=== PATIENT | female | born 1955 | race Two or more races ===

== ENCOUNTER 2019-02-24 08:06 | Inpatient (IN) | payer OTHER ==
[~2019-02-24] VITALS: Ht 167.6 cm; Wt 93.4 kg
[2019-02-24] VITALS (62 sets, daily range): BP systolic 50–167; BP diastolic 19–112
[2019-02-24] MEDS ORDERED: NALOXONE HCL 1 MG/ML 2ML VIAL ONE (08:12)
[2019-02-24] MEDS ORDERED: ETOMIDATE 2MG/ML 10ML VIAL IV ONE (08:30)
[2019-02-24] MEDS ORDERED: SUCCINYLCHOLINE CHLORIDE 200MG/10ML IV ONE (08:30)
[2019-02-24] MEDS ORDERED: NALOXONE HCL 1 MG/ML 2ML VIAL IV ONE (08:30)
[2019-02-24] MEDS ORDERED: PROPOFOL 10MG/ML 100ML 100 ML IV ONE (08:30)
[2019-02-24 08:42] LABS: PROTHROMBIN TIME 10.6 sec (9.6-11.0)
[2019-02-24 08:48] LABS: BASOPHILS % 0.1 % (0.0-2.0); HEMATOCRIT. 33.8 % (36.0-48.0); HEMOGLOBIN. 11.1 g/dL (12.0-16.0); LYMPHOCYTES % 7.3 % (20.0-50.0); MEAN CORPUSCULAR VOLUME 94.3 fL (81.0-99.0); MEAN PLATELET VOLUME 11.2 fl (7.4-10.4); MONOCYTES % 11.4 % (2.0-8.0); NEUTROPHILS % 81.2 % (40.0-76.0); PLATELET 116 x1000/uL (130-400); RED BLOOD CELL COUNT 3.58 mill/uL (4.2-5.4); RED CELL DISTRIBUTION WIDTH 14.8 % (11.6-14.6)
[2019-02-24 09:03] LABS: CHLORIDE 103 mEq/L (98-107)
[2019-02-24 09:28] LABS: BG BASE EXCESS -17.1 mmol/L (-2.0-2.0); BG CARBOXYHEMOGLOBIN 0.3 % (0.5-1.5); BG DEOXYHEMOGLOBIN 0.8 % (0.0-5.0); BG HCO3 ACT 11.9 mmol/L (22.0-26.0); BG METHEMOGLOBIN 0.2 % (0.0-1.5); BG OXYGEN SATURATION 99.2 % (92.0-98.5); BG OXYHEMOGLOBIN 98.7 % (94.0-97.0); BG PCO2 39.8 mmHg (35.0-45.0); BG PH 7.092 (7.350-7.450); BG PO2 269.7 mmHg (75.0-100.0); BG SAMPLE SITE RIGHT BRACHIAL; BG TIDAL VOLUME(mL) 500 mL; BG VENT MODE VENT - A/C; BG VENT RATE 16 set
[2019-02-24] MEDS ORDERED: FUROSEMIDE 100MG/10ML VIAL IV ONE (09:30)
[2019-02-24] MEDS ORDERED: INSULIN REGULAR (HUMULIN R) 300UNITS/3ML IV ONE (09:30)
[2019-02-24] MEDS ORDERED: SODIUM BICARBONATE 8.4% 1 MEQ/ML 50ML SYR IV ONE (09:30)
[2019-02-24] MEDS ORDERED: DEXTROSE 50% WATER 50ML SYRINGE IV ONE (09:30)
[2019-02-24] MEDS ORDERED: SODIUM CHLORIDE 0.9% 1,000 ML IV ONE (10:30)
[2019-02-24] MEDS ORDERED: LIDOCAINE HCL 1% 20ML VIAL (Pyxis) INJ ONE (10:30)
[2019-02-24] MEDS ORDERED: NOREPINEPHRINE 4MG/250ML PMX 250 ML IV ONE (11:05)
[2019-02-24] MEDS ORDERED: NOREPINEPHRINE 4 MG in DEXT 5% WATER 246 ML IV ONE (11:15)
[2019-02-24 12:52] LABS: HEPATITIS B SURFACE ANTIGEN NEGATIVE
[2019-02-24 13:21] LABS: HEPATITIS A AB IGM NEGATIVE (NEGATIVE)
[2019-02-24 13:51] LABS: CLARITY URINE TURBID (CLEAR); COLOR URINE YELLOW (YELLOW); KETONES URINE NEGATIVE (NEGATIVE); LEUKOCYTE ESTERASE URINE NEGATIVE (NEGATIVE); NITRITE URINE NEGATIVE (NEGATIVE); OCCULT BLOOD URINE 1+ (NEGATIVE); PROTEIN URINE 1+ (NEGATIVE); SPECIFIC GRAVITY URINE 1.012 (1.005-1.030); UROBILINOGEN URINE 0.2 E.U./dL (0.2-1.0)
[2019-02-24] MEDS ORDERED: PHENYLEPHRINE 10 MG in DEXT 5% WATER 249 ML IV PRN (15:00)
[2019-02-24] MEDS ORDERED: PIPERACILLIN/TAZ 3.375G PREMIX 50 ML IV SCH (15:00)
[2019-02-24] MEDS ORDERED: ONDANSETRON HCL 4MG/2ML INJ IV PRN (15:00)
[2019-02-24] MEDS ORDERED: LORAZEPAM 0.5MG TABLET PO PRN (15:00)
[2019-02-24] MEDS: DEXT 5%/0.45% NACL 1000ML 1,000 ML IV SCH (15:24)
[2019-02-24] MEDS: NOREPINEPHRINE 4 MG in DEXT 5% WATER 246 ML IV PRN ×2 (15:41→22:19)
[2019-02-24] MEDS: PROPOFOL 10MG/ML 100ML 100 ML IV PRN ×2 (15:46→21:36)
[2019-02-24] MEDS ORDERED: VANCOMYCIN 1500MG in DEXTROSE 5% WATER 250ML IV SCH (18:00)
[2019-02-24] MEDS: FAMOTIDINE 20MG/2ML VIAL IV SCH (18:17)
[2019-02-24] MEDS: PIPERACILLIN/TAZ 2.25G PREMIX 50 ML IV SCH (18:17)
[2019-02-24] MEDS: ENOXAPARIN 40MG/0.4ML SYR SUBCUT SCH (18:18)
[2019-02-24] MEDS: CHLORHEXIDINE GLUCONATE 0.12% ORAL MOUTHWASH SSP SCH (18:20)
[2019-02-24] MEDS ORDERED: DEXTROSE 50% WATER 50ML SYRINGE IV PRN ×2 (23:15)
[2019-02-24] MEDS ORDERED: NOREPINEPHRINE 32 MG in DEXT 5% WATER 468 ML IV PRN ×2 (23:25→23:30)
[2019-02-24] MEDS ORDERED: PHENYLEPHRINE 80 MG in DEXT 5% WATER 492 ML IV PRN ×2 (23:26→23:45)
[2019-02-24] MEDS ORDERED: NOREPINEPHRINE 32 MG in DEXT 5% WATER 500 ML IV PRN (23:30)
[2019-02-24] MEDS: BLOOD SUGAR DIAGNOSTIC STRIP TEST SCH (23:50)
[2019-02-25] VITALS (99 sets, daily range): BP systolic 67–164; BP diastolic 20–112
[2019-02-25] MEDS ORDERED: BLOOD SUGAR DIAGNOSTIC STRIP TEST SCH
[2019-02-25] MEDS: PROPOFOL 10MG/ML 100ML 100 ML IV PRN ×5 (02:24→19:47)
[2019-02-25] MEDS: PIPERACILLIN/TAZ 2.25G PREMIX 50 ML IV SCH ×2 (04:00→16:35)
[2019-02-25] MEDS: MORPHINE SULFATE 2 MG/ML CPJ (NOT FOR IM USE) IV PRN ×3 (04:01→20:35)
[2019-02-25 04:32] LABS: HEMATOCRIT. 32.6 % (36.0-48.0); HEMOGLOBIN. 11.3 g/dL (12.0-16.0); MEAN CORPUSCULAR HEMOGLOBIN 30.9 pg (28.0-32.0); MEAN CORPUSCULAR VOLUME 88.8 fL (81.0-99.0); MEAN PLATELET VOLUME 9.9 fl (7.4-10.4); PLATELET 124 x1000/uL (130-400); RED BLOOD CELL COUNT 3.67 mill/uL (4.2-5.4); RED CELL DISTRIBUTION WIDTH 14.1 % (11.6-14.6)
[2019-02-25] MEDS: INSULIN LISPRO 100 UNITS/ML SUBCUT SCH ×4 (06:00→17:47)
[2019-02-25] MEDS: BLOOD SUGAR DIAGNOSTIC STRIP TEST SCH ×3 (06:23→17:46)
[2019-02-25 07:11] LABS: ATYPICAL LYMPHOCYTES 1; PLATELET ESTIMATE SLIGHTLY DECREASED
[2019-02-25] MEDS: DEXT 5%/0.45% NACL 1000ML 1,000 ML IV SCH (08:34)
[2019-02-25] MEDS: FAMOTIDINE 20MG/2ML VIAL IV SCH (08:34)
[2019-02-25] MEDS: CHLORHEXIDINE GLUCONATE 0.12% ORAL MOUTHWASH SSP SCH ×3 (08:35→16:37)
[2019-02-25 09:26] LABS: BG BASE EXCESS 0.3 mmol/L (-2.0-2.0); BG CARBOXYHEMOGLOBIN 0.8 % (0.5-1.5); BG FRACTION INSPIRED OXYGEN 40; BG HCO3 ACT 23.8 mmol/L (22.0-26.0); BG METHEMOGLOBIN 0.1 % (0.0-1.5); BG OXYHEMOGLOBIN 97.1 % (94.0-97.0); BG PCO2 34.9 mmHg (35.0-45.0); BG PH 7.452 (7.350-7.450); BG PO2 107.4 mmHg (75.0-100.0); BG SAMPLE SITE RIGHT RADIAL; BG TIDAL VOLUME(mL) 550 mL; BG TOTAL HEMOGLOBIN 12.1 g/dL (12.0-18.0); BG VENT MODE VENT - A/C; BG VENT RATE 20 set
[2019-02-25] MEDS ORDERED: KCL 20MEQ/100ML PREMIX 100 ML IV ONE (12:00)
[2019-02-25] MEDS: ENOXAPARIN 40MG/0.4ML SYR SUBCUT SCH (16:36)
[2019-02-25] MEDS: IPRATROPIUM/ALBUTEROL 0.5-3(2.5)MG/3ML NEB INH PRN (19:55)
[2019-02-26] VITALS (55 sets, daily range): BP systolic 90–138; BP diastolic 41–91
[2019-02-26] MEDS: BLOOD SUGAR DIAGNOSTIC STRIP TEST SCH ×5 (00:23→23:55)
[2019-02-26] MEDS: PIPERACILLIN/TAZ 2.25G PREMIX 50 ML IV SCH ×3 (00:31→17:24)
[2019-02-26] MEDS: PROPOFOL 10MG/ML 100ML 100 ML IV PRN ×2 (00:32→04:46)
[2019-02-26] MEDS: DEXT 5%/0.45% NACL 1000ML 1,000 ML IV SCH ×2 (00:33→17:25)
[2019-02-26] MEDS: MORPHINE SULFATE 2 MG/ML CPJ (NOT FOR IM USE) IV PRN ×2 (03:58→14:12)
[2019-02-26 04:54] LABS: BASOPHILS % 0.3 % (0.0-2.0); EOSINOPHILS % 0.7 % (0.0-5.0); HEMATOCRIT. 32.8 % (36.0-48.0); HEMOGLOBIN. 11.2 g/dL (12.0-16.0); MEAN CORPUSCULAR HEMOGLOBIN 30.6 pg (28.0-32.0); MEAN CORPUSCULAR VOLUME 89.6 fL (81.0-99.0); MEAN PLATELET VOLUME 9.6 fl (7.4-10.4); MONOCYTES % 12.1 % (2.0-8.0); NEUTROPHILS % 61.9 % (40.0-76.0); PLATELET 144 x1000/uL (130-400); RED BLOOD CELL COUNT 3.66 mill/uL (4.2-5.4); RED CELL DISTRIBUTION WIDTH 14.4 % (11.6-14.6)
[2019-02-26] MEDS: INSULIN LISPRO 100 UNITS/ML SUBCUT SCH ×5 (06:00→23:55)
[2019-02-26] MEDS: IPRATROPIUM/ALBUTEROL 0.5-3(2.5)MG/3ML NEB INH PRN ×2 (08:56→12:29)
[2019-02-26] MEDS: FAMOTIDINE 20MG/2ML VIAL IV SCH (09:09)
[2019-02-26] MEDS: ACETAMINOPHEN 650MG/20.3ML UDC PO PRN (09:10)
[2019-02-26] MEDS: CHLORHEXIDINE GLUCONATE 0.12% ORAL MOUTHWASH SSP SCH ×3 (09:10→17:25)
[2019-02-26] MEDS ORDERED: POTASSIUM CHLORIDE 20MEQ/PACKET NG NR (10:00)
[2019-02-26] MEDS ORDERED: VANCOMYCIN 1500MG in DEXTROSE 5% WATER 250ML IV NR (10:00)
[2019-02-26 11:07] LABS: BG BASE EXCESS 2.4 mmol/L (-2.0-2.0); BG CARBOXYHEMOGLOBIN 0.5 % (0.5-1.5); BG FRACTION INSPIRED OXYGEN 40; BG METHEMOGLOBIN 0.1 % (0.0-1.5); BG OXYHEMOGLOBIN 93.4 % (94.0-97.0); BG PCO2 47.6 mmHg (35.0-45.0); BG PH 7.387 (7.350-7.450); BG PO2 71.1 mmHg (75.0-100.0); BG PRESSURE SUPPORT 10; BG SAMPLE SITE RIGHT RADIAL; BG TOTAL HEMOGLOBIN 11.7 g/dL (12.0-18.0); BG VENT MODE VENT - CPAP
[2019-02-26] MEDS: ENOXAPARIN 40MG/0.4ML SYR SUBCUT SCH (17:24)
[2019-02-27] VITALS (29 sets, daily range): BP systolic 114–161; BP diastolic 71–105
[2019-02-27] MEDS: PIPERACILLIN/TAZ 2.25G PREMIX 50 ML IV SCH ×3 (00:01→16:25)
[2019-02-27] MEDS: MORPHINE SULFATE 2 MG/ML CPJ (NOT FOR IM USE) IV PRN (00:02)
[2019-02-27] MEDS: DEXT 5%/0.45% NACL 1000ML 1,000 ML IV SCH (01:53)
[2019-02-27] MEDS: INSULIN LISPRO 100 UNITS/ML SUBCUT SCH ×3 (06:00→18:00)
[2019-02-27 06:07] LABS: BASOPHILS % 0.3 % (0.0-2.0); EOSINOPHILS % 1.9 % (0.0-5.0); HEMATOCRIT. 31.8 % (36.0-48.0); HEMOGLOBIN. 10.9 g/dL (12.0-16.0); LYMPHOCYTES % 27.1 % (20.0-50.0); MEAN CORPUSCULAR HEMOGLOBIN 31.5 pg (28.0-32.0); MEAN CORPUSCULAR VOLUME 91.7 fL (81.0-99.0); MEAN PLATELET VOLUME 9.3 fl (7.4-10.4); MONOCYTES % 10.4 % (2.0-8.0); NEUTROPHILS % 60.3 % (40.0-76.0); PLATELET 162 x1000/uL (130-400); RED BLOOD CELL COUNT 3.47 mill/uL (4.2-5.4); RED CELL DISTRIBUTION WIDTH 14.3 % (11.6-14.6)
[2019-02-27] MEDS: BLOOD SUGAR DIAGNOSTIC STRIP TEST SCH ×3 (06:09→18:02)
[2019-02-27 06:13] LABS: PHOSPHORUS 4.2 mg/dL (2.5-4.9)
[2019-02-27] MEDS: FAMOTIDINE 20MG/2ML VIAL IV SCH (08:00)
[2019-02-27] MEDS: CHLORHEXIDINE GLUCONATE 0.12% ORAL MOUTHWASH SSP SCH ×3 (08:01→16:25)
[2019-02-27] MEDS ORDERED: VANCOMYCIN 1250MG in DEXTROSE 5% WATER 250ML IV NR (12:00)
[2019-02-27] MEDS: ENOXAPARIN 40MG/0.4ML SYR SUBCUT SCH (16:25)
[2019-02-27] MEDS: ACETAMINOPHEN 650MG/20.3ML UDC PO PRN (20:00)
[2019-02-28] VITALS (51 sets, daily range): BP systolic 97–165; BP diastolic 16–103
[2019-02-28] MEDS: BLOOD SUGAR DIAGNOSTIC STRIP TEST SCH ×5 (00:09→21:34)
[2019-02-28] MEDS: PIPERACILLIN/TAZ 2.25G PREMIX 50 ML IV SCH ×3 (00:13→15:52)
[2019-02-28 05:50] LABS: BASOPHILS % 0.4 % (0.0-2.0); EOSINOPHILS % 1.2 % (0.0-5.0); HEMATOCRIT. 36.2 % (36.0-48.0); HEMOGLOBIN. 11.9 g/dL (12.0-16.0); LYMPHOCYTES % 25.5 % (20.0-50.0); MEAN CORPUSCULAR VOLUME 94.2 fL (81.0-99.0); MONOCYTES % 9.5 % (2.0-8.0); NEUTROPHILS % 63.4 % (40.0-76.0); PLATELET 180 x1000/uL (130-400); RED BLOOD CELL COUNT 3.84 mill/uL (4.2-5.4); RED CELL DISTRIBUTION WIDTH 13.9 % (11.6-14.6)
[2019-02-28] MEDS: INSULIN LISPRO 100 UNITS/ML SUBCUT SCH ×5 (06:00→21:00)
[2019-02-28] MEDS: FAMOTIDINE 20MG/2ML VIAL IV SCH (09:24)
[2019-02-28] MEDS: CHLORHEXIDINE GLUCONATE 0.12% ORAL MOUTHWASH SSP SCH ×2 (09:24→17:14)
[2019-02-28] MEDS ORDERED: VANCOMYCIN 1500MG in DEXTROSE 5% WATER 250ML IV NR (10:00)
[2019-02-28] MEDS ORDERED: LIDOCAINE HCL 2% 5ML SYRINGE IV ONE (14:45)
[2019-02-28 15:25] LABS: BG BASE EXCESS 3.1 mmol/L (-2.0-2.0); BG CARBOXYHEMOGLOBIN 0.4 % (0.5-1.5); BG DEOXYHEMOGLOBIN 8.3 % (0.0-5.0); BG HCO3 ACT 27.5 mmol/L (22.0-26.0); BG OXYGEN SATURATION 91.7 % (92.0-98.5); BG OXYHEMOGLOBIN 91.3 % (94.0-97.0); BG PCO2 41.1 mmHg (35.0-45.0); BG PH 7.443 (7.350-7.450); BG PO2 61.1 mmHg (75.0-100.0); BG SAMPLE SITE RIGHT RADIAL; BG TOTAL HEMOGLOBIN 12.4 g/dL (12.0-18.0); BG VENT MODE ROOM AIR
[2019-02-28] MEDS: ENOXAPARIN 40MG/0.4ML SYR SUBCUT SCH (17:14)
[2019-03-01] VITALS (41 sets, daily range): BP systolic 105–164; BP diastolic 46–119
[2019-03-01] MEDS: PIPERACILLIN/TAZ 2.25G PREMIX 50 ML IV SCH ×4 (00:04→23:51)
[2019-03-01 05:59] LABS: HEMATOCRIT. 33.3 % (36.0-48.0); HEMOGLOBIN. 11.4 g/dL (12.0-16.0); MEAN CORPUSCULAR HEMOGLOBIN 31.3 pg (28.0-32.0); MEAN PLATELET VOLUME 8.8 fl (7.4-10.4); PLATELET 184 x1000/uL (130-400); RED BLOOD CELL COUNT 3.66 mill/uL (4.2-5.4); RED CELL DISTRIBUTION WIDTH 13.9 % (11.6-14.6)
[2019-03-01] MEDS: INSULIN LISPRO 100 UNITS/ML SUBCUT SCH ×4 (07:50→21:00)
[2019-03-01] MEDS ORDERED: POTASSIUM CHLORIDE 20MEQ/PACKET PO SCH (08:00)
[2019-03-01] MEDS: BLOOD SUGAR DIAGNOSTIC STRIP TEST SCH ×4 (08:01→21:11)
[2019-03-01] MEDS: FAMOTIDINE 20MG/2ML VIAL IV SCH (08:01)
[2019-03-01] MEDS ORDERED: VANCOMYCIN 1250MG in DEXTROSE 5% WATER 250ML IV SCH (11:00)
[2019-03-01] MEDS: CHLORHEXIDINE GLUCONATE 0.12% ORAL MOUTHWASH SSP SCH ×3 (11:16→16:40)
[2019-03-01 12:49] LABS: PLATELET ESTIMATE NORMAL
[2019-03-01] MEDS: ENOXAPARIN 40MG/0.4ML SYR SUBCUT SCH (16:40)
[2019-03-02] VITALS (27 sets, daily range): BP systolic 110–186; BP diastolic 52–96
[2019-03-02 06:11] LABS: HEMATOCRIT. 33.3 % (36.0-48.0); HEMOGLOBIN. 11.3 g/dL (12.0-16.0); MEAN CORPUSCULAR HEMOGLOBIN 31.2 pg (28.0-32.0); MEAN CORPUSCULAR VOLUME 91.5 fL (81.0-99.0); MEAN PLATELET VOLUME 8.9 fl (7.4-10.4); PLATELET 190 x1000/uL (130-400); RED BLOOD CELL COUNT 3.64 mill/uL (4.2-5.4); RED CELL DISTRIBUTION WIDTH 13.8 % (11.6-14.6)
[2019-03-02] MEDS: INSULIN LISPRO 100 UNITS/ML SUBCUT SCH ×4 (07:46→21:00)
[2019-03-02] MEDS: BLOOD SUGAR DIAGNOSTIC STRIP TEST SCH ×4 (07:46→20:47)
[2019-03-02] MEDS: FAMOTIDINE 20MG/2ML VIAL IV SCH (09:04)
[2019-03-02] MEDS: CHLORHEXIDINE GLUCONATE 0.12% ORAL MOUTHWASH SSP SCH ×3 (09:04→18:21)
[2019-03-02] MEDS: PIPERACILLIN/TAZ 2.25G PREMIX 50 ML IV SCH ×2 (09:04→16:16)
[2019-03-02 09:34] LABS: PLATELET ESTIMATE NORMAL
[2019-03-02] MEDS ORDERED: VANCOMYCIN 1500MG in DEXTROSE 5% WATER 250ML IV SCH ×4 (13:00)
[2019-03-02] MEDS: ACETAMINOPHEN 650MG/20.3ML UDC PO PRN (16:16)
[2019-03-02] MEDS: ENOXAPARIN 30MG/0.3ML SYR SUBCUT SCH (21:35)
[2019-03-03] VITALS (8 sets, daily range): BP systolic 129–169; BP diastolic 78–94
[2019-03-03] MEDS: PIPERACILLIN/TAZ 2.25G PREMIX 50 ML IV SCH ×2 (00:14→08:45)
[2019-03-03 06:17] LABS: HEMATOCRIT. 34.1 % (36.0-48.0); HEMOGLOBIN. 11.5 g/dL (12.0-16.0); MEAN CORPUSCULAR VOLUME 91.4 fL (81.0-99.0); MEAN PLATELET VOLUME 9.1 fl (7.4-10.4); PLATELET 193 x1000/uL (130-400); RED BLOOD CELL COUNT 3.73 mill/uL (4.2-5.4); RED CELL DISTRIBUTION WIDTH 13.5 % (11.6-14.6)
[2019-03-03] MEDS: BLOOD SUGAR DIAGNOSTIC STRIP TEST SCH ×2 (06:52→12:34)
[2019-03-03] MEDS: INSULIN LISPRO 100 UNITS/ML SUBCUT SCH ×2 (06:53→12:20)
[2019-03-03] MEDS: FAMOTIDINE 20MG/2ML VIAL IV SCH (08:45)
[2019-03-03] MEDS: ENOXAPARIN 30MG/0.3ML SYR SUBCUT SCH (08:45)
[2019-03-03] MEDS: CHLORHEXIDINE GLUCONATE 0.12% ORAL MOUTHWASH SSP SCH ×2 (08:53→12:34)
[2019-03-03 10:42] LABS: PLATELET ESTIMATE NORMAL
[2019-03-03] MEDS ORDERED: AMLODIPINE 5MG TABLET PO SCH (11:30)
[2019-03-03] MEDS ORDERED: VANCOMYCIN 1500MG in DEXTROSE 5% WATER 250ML IV SCH (14:00)
[2019-03-03] MEDS ORDERED: ASPI-1393 PO (14:28)
[2019-03-03] MEDS ORDERED: ATOR40TA70 PO (14:29)
== END 2019-03-03 17:12 | disposition home health service (06) | DRG 720 ==
LOC: ER 08:06 → CANRESERV 09:49 → CVICU 10:20 → EDBEDREQTM 10:24 → EDBEDREQ 10:24 → ENRESERV 10:29 → CVICU 12:10 → 6WST 03-03 01:30
PROVIDERS: ADMIT Internal Medicine; ATTEND Internal Medicine
PROC: 5A1945Z Respiratory Ventilation, 24-96 Consecutive Hours (ICD-10-PCS; principal; 2019-02-24)
PROC: 0BH17EZ Insertion of Endotracheal Airway into Trachea, Via Natural or Artificial Opening (ICD-10-PCS; 2019-02-24)
PROC: 02HV33Z Insertion of Infusion Device into Superior Vena Cava, Percutaneous Approach (ICD-10-PCS; 2019-02-24)
PROC: B548ZZA Ultrasonography of Superior Vena Cava, Guidance (ICD-10-PCS; 2019-02-24)
PROC: 5A1D70Z Performance of Urinary Filtration, Intermittent, Less than 6 Hours Per Day (ICD-10-PCS; 2019-02-24)
DX: A41.9 Sepsis, unspecified organism (principal); R57.9 Shock, unspecified; J96.91 Respiratory failure, unspecified with hypoxia; Z99.11 Dependence on respirator [ventilator] status; G93.40 Encephalopathy, unspecified; J18.9 Pneumonia, unspecified organism; G93.49 Other encephalopathy; E86.9 Volume depletion, unspecified; N17.9 Acute kidney failure, unspecified; E87.2 Acidosis; E87.5 Hyperkalemia; E87.1 Hypo-osmolality and hyponatremia; E11.22 Type 2 diabetes mellitus with diabetic chronic kidney disease; I12.9 Hypertensive chronic kidney disease with stage 1 through stage 4 chronic kidney disease, or unspecified chronic kidney disease; N18.9 Chronic kidney disease, unspecified; I69.351 Hemiplegia and hemiparesis following cerebral infarction affecting right dominant side; Z78.1 Physical restraint status
CPT/HCPCS: 31500; 36415; 36556; 36600; 71045; 76937; 78580; 80048; 80202; 82375; 82805; 82962; 83605; 83735; 83880; 84100; 84478; 84484; 86705; 86709; 86803; 87070; 87340; 87493; 92610; 93005; 93306; 93970; 94002; 94003; 94640; 96374; 96375; 97116; 97162; 97166; 97530; 99291; A6261; C1752; J0330; J1650; J1815; J2270; J2310; J2543; J2704; J3370; J3480; J3490; J7030; J7040; J7050; J7060; J7620